=== PATIENT | female | born 1955 | race Caucasian/White ===

== ENCOUNTER 2022-01-16 18:51 | Emergency (ER) | payer BC, MEDICARE ==
[~2022-01-16] VITALS: Ht 165.1 cm; Wt 74.8 kg
== END 2022-01-16 22:43 | disposition home or self-care (01) ==
LOC: ER 18:51
DX: M79.662 Pain in left lower leg (principal); Z88.2 Allergy status to sulfonamides
CPT/HCPCS: 93971